=== PATIENT | female | born 1970 | race Caucasian/White ===

== ENCOUNTER → 2020-07-29 13:18 | Outpatient (CLI) | payer BC, SELFPAY ==
--- NOTE | ~2020-07-29 | MM_ITS ---
EXAMINATION: MM screening [facility] BI w venus HISTORY: Screening TECHNIQUE: Craniocaudal and mediolateral oblique 3-D tomosynthesis images were obtained and synthetic 2-D images were generated. CAD analysis was submitted and interpreted. COMPARISON: Comparison to multiple prior studies sequentially, with oldest reviewed study dated 04/06. BREAST PARENCHYMAL COMPOSITION: The breasts are heterogeneously dense, which may obscure small masses . FINDINGS: There is no evidence of suspicious mass, calcification, or architectural distortion to sugg est malignancy in either breast. There has been no suspicious interval change. IMPRESSION: 1. No mammographic evidence of malignancy. 2. Recommend routine screening mammography in one year. BI-RADS Category 1: Negative Reviewed, dictated and finalized at location A. SEWER
== END ==
PROVIDERS: Visit Provider Nurse Practitioner
DX: Z12.31 Encounter for screening mammogram for malignant neoplasm of breast (principal)
CPT/HCPCS: 77063; 77067

== ENCOUNTER → 2021-09-15 12:17 | Outpatient (CLI) | payer BC, SELFPAY ==
--- NOTE | ~2021-09-15 | MM_ITS ---
EXAMINATION: MM screening [facility] BI w [facility] HISTORY: Screening mammogram TECHNIQUE: Craniocaudal and mediolateral oblique 3-D tomosynthesis images were obtained and synthetic 2-D images were generated. CAD analysis was submitted and interpreted. COMPARISON: 07/29/2020, 05/12/2019 BREAST PARENCHYMAL COMPOSITION: There are scattered areas of fibroglandular density. FINDINGS: There is no evidence of suspicious mass, calcification, or architectural distortion to sugg est malignancy in either breast. There has been no suspicious interval change. IMPRESSION: 1. No mammographic evidence of malignancy. 2. Recommend routine screening mammography in one year. BI-RADS Category 1: Negative Reviewed, dictated and finalized at location A. TWISTER WINDER
== END ==
PROVIDERS: PCP Obstetrics & Gynecology Gynecology; Visit Provider Obstetrics & Gynecology Gynecology
DX: Z12.31 Encounter for screening mammogram for malignant neoplasm of breast (principal)
CPT/HCPCS: 77063; 77067

== ENCOUNTER → 2022-11-19 16:18 | Outpatient (CLI) | payer BC, SELFPAY ==
--- NOTE | ~2022-11-19 | MM_ITS ---
EXAMINATION: MM screening [facility] BI w [facility] HISTORY: Screening TECHNIQUE: Craniocaudal and mediolateral oblique 3-D tomosynthesis images were obtained and synthetic 2-D images were generated. CAD analysis was submitted and interpreted. COMPARISON: No prior mammogram is available for comparison at this institution. BREAST PARENCHYMAL COMPOSITION: There are scattered areas of fibroglandular density. FINDINGS: There is no evidence of suspicious mass, calcification, or architectural distortion to sugg est malignancy in either breast. There has been no suspicious interval change. IMPRESSION: 1. No mammographic evidence of malignancy. 2. Recommend routine screening mammography in one year. BI-RADS Category 1: Negative Reviewed, dictated and finalized at location A.
== END ==
PROVIDERS: PCP Obstetrics & Gynecology Gynecology; Visit Provider Nurse Practitioner
DX: Z12.31 Encounter for screening mammogram for malignant neoplasm of breast (principal)
CPT/HCPCS: 77063; 77067

== ENCOUNTER 2023-12-27 10:09 | Outpatient (CLI) | payer BC, SELFPAY ==
--- NOTE | ~2023-12-27 | MM_ITS ---
EXAMINATION: MM screening [facility] BI w ven[facility] HISTORY: Screening mammogram TECHNIQUE: Craniocaudal and mediolateral oblique 3-D tomosynthesis images were obtained and synthetic 2-D images were generated. CAD analysis was submitted and interpreted. COMPARISON: 11/19/2022, 09/15/2021 bilateral screening mammogram examinations BREAST PARENCHYMAL COMPOSITION: There are scattered areas of fibroglandular density. FINDINGS: Biopsy marker on the left; history of prior benign left breast biopsy. Possible 5 mm mass is suggested in the anterior outer mid right breast. Diagnostic right mammogram is recommended, with ultrasound if required. Otherwise there is no evidence of suspicious mass, calcification, or architectural distortion to sugg est malignancy in either breast. There has been no other suspicious interval change. IMPRESSION: 1. Possible 5 mm right breast mass, anterior outer mid breast 2. Diagnostic right mammogram is recommended with ultrasound if required BI-RADS Category 0: Incomplete: Needs additional imaging evaluation. Reviewed, dictated and finalized at location B.
--- NOTE | ~2023-12-27 | DEXA_ITS ---
Bone Density Report Name: KENNY MONSIVAIS Age: 53 Sex: Female Ethnicity: White Date of : 1970 Indication: postmenopausal; screening for osteoporosis; Referring Provider: ADOLFO, EDISON Study: Bone densitometry was performed. Exam Date: December 27, 2023 Accession number: [id number] Bone Density: Region BMD T-score Z-score Classification AP Spine (L1-L4) 1.005 -0.4 0.6 Normal Femoral Neck (Left) 0.705 -1.3 -0.3 Osteopenia Total Hip (Left) 0.947 0.0 0.7 Normal Femoral Neck (Right) 0.698 -1.4 -0.3 Osteopenia Total Hip (Right) 0.934 -0.1 0.6 Normal Total Hip Mean 0.941 -0.1 0.7 Normal World Health Organization criteria for BMD impression classify patients as: Normal (T-score at or above -1.0), Osteopenia (T-score between -1.0 and -2.5), or Osteoporosis (T-score at or below -2.5). 10-year Fracture Risk(1): Major Osteoporotic Fracture 5.7% Hip Fracture 0.3% Reported Risk Factors: [place] (), Neck BMD=0.698, BMI=32.8 (1) FRAX(R) Version 3.08. Fracture probability calculated for an untreated patient. Fracture probability may be lower if the patient has received treatment. Clinical Information Provided by Patient: Has used the following medications: Vitamin D, Calcium Patient maximum height was 62.63 Menopause Age: 51 No regular weight bearing exercise Drinks caffeinated beverages Onset of menses at age 13 Number of children 2 Impression: The patient has low bone mass, based on the Right Femoral Neck T-score. The patient has an estimated ten-year risk of hip fracture of 0.3% and an estimated ten-year risk of major fracture of 5.7%, based on the WHO FRAX algorithm. Discussion: BONE DENSITY IS LOW AT ONE OR MORE SKELETAL SITES. This patient's lowest T-score is low at one or more skeletal sites. It meets the World Health Organization's (WHO) criteria for ?low bone mass? (T-score between -1.0 and -2.5). The patient's 10-year risk of fracture as calculated by FRAX is less than the threshold where pharmacological therapy is recommended by the National Osteoporosis Foundation (NOF). However, all treatment decisions require clinical judgment and consideration of individual patient factors, including patient preferences, comorbidities, previous drug use, risk factors not captured in the FRAX model (e.g., frailty, falls, vitamin D deficiency, increased bone turnover, interval significant decline in bone density) and possible under or overestimation of fracture risk by FRAX. The patient should follow a healthful lifestyle (good nutrition with adequate calcium and vitamin D, and appropriate weight-bearing exercise). Follow-Up: Consider repeating this study in 2 to 3 years to reassess this patient's status, or sooner if there is some new clinical indication. Reported by: FRIDA on
== END 2023-12-27 10:10 ==
LOC: MICIMG 10:10
PROVIDERS: PCP Nurse Practitioner; Visit Provider Nurse Practitioner
DX: Z12.31 Encounter for screening mammogram for malignant neoplasm of breast (principal); Z78.0 Asymptomatic menopausal state; R92.8 Other abnormal and inconclusive findings on diagnostic imaging of breast; M85.852 Other specified disorders of bone density and structure, left thigh; M85.851 Other specified disorders of bone density and structure, right thigh
CPT/HCPCS: 77063; 77067; 77080

== ENCOUNTER 2023-12-30 13:40 | Outpatient (CLI) | payer BC, SELFPAY ==
--- NOTE | ~2023-12-30 | US_ITS ---
EXAMINATION: US transvaginal DATE: 12/30/2023 14:01 INDICATION: Postmenopausal bleeding TECHNIQUE: Multiple endovaginal sonographic images of the pelvis were obtained. COMPARISON: 03/23/2017 FINDINGS: The uterus measures 10.3 x 4.9 x 6.3 cm. The endometrial complex measures 17 mm in thickness. Within the myometrium along the anterior margin of the endometrial complex are a few nonspecific small nodu lar regions of similar echogenicity as the endometrial complex measuring up to 9 mm in maximal diamet er. 2.6 cm hypoechoic fibroid at the left side of the uterine fundus. For millimeter anechoic myometr ial cyst at the anterior lower uterine segment. The bilateral ovaries are not visualized. There is no free fluid in the pelvis. IMPRESSION: 1. Prominently thickened endometrial complex which measures up to 17 mm raising concern for endometri al carcinoma with differential including endometrial hyperplasia. Recommend hysteroscopy for further evaluation. 2. 2.6 cm uterine fibroid. 3. A few subcentimeter nodular region of increased echogenicity along the anterior margin of the endo metrial comparison with similar echogenicity potentially additional uterine fibroids although the pre sence of endometrial carcinoma this could represent myometrial invasion. Reviewed, dictated and finalized at location A. IMPRESSION: 1. Prominently thickened endometrial complex which measures up to 17 mm raising concern for endometrial carcinoma with differential including endometrial hype rplasia. Recommend hysteroscopy for further evaluation. 2. 2.6 cm uterine fibroid. 3. A few subcentimeter nodular region of increased echogenicity along the anter ior margin of the endometrial comparison with similar echogenicity potentially additional uterine fibroids although the presence of endometrial carcinoma this could represent myometrial invasion.
== END 2023-12-30 13:41 ==
LOC: MICIMG 13:41
PROVIDERS: PCP Nurse Practitioner; Visit Provider Nurse Practitioner
DX: N95.0 Postmenopausal bleeding (principal); N85.00 Endometrial hyperplasia, unspecified; D25.9 Leiomyoma of uterus, unspecified
CPT/HCPCS: 76830

== ENCOUNTER 2024-01-07 00:38 | Day surgery (SDC) | payer BC, SELFPAY ==
[2024-01-03 13:10] VITALS: BMI 33.0
--- NOTE | 2024-01-03 13:11 | PC.NURSE ---
Report to the Outpatient Waiting Room, entrance under the green pavilion located off [facility], at time _0800_ on date _[id number]_. Planned Procedure Time: _1000_. Time changes happen often and if your time is changed the preop area will call you the afternoon before. - You and your visitor will be asked to self-screen and do not enter if you have any COVID symptoms. - A mask is optional within the hospital at this time. Patients may have clear liquids (water, carbonated beverages, clear teas, apple juice) until 3 hours prior to surgery with a maximum of 20 ounces. - No food from midnight until time of surgery Take the following medications with a SIP of water the morning of surgery: ___None DO NOT STOP ANY OF YOUR OTHER PRESCRIPTION MEDICATIONS PRIOR TO SURGERY ?EXCEPT THE FOLLOWING Medications to discontinue per physician ___Stop vitamin d Date to take last [id number] Please no make-up, nail mongolian, hairspray, perfume, deodorant, or body powder the day of surgery. No jewelry (including any body piercings) or valuables the day of surgery, leave them at home. Please take a shower or bath the night before, or the morning of, surgery with an antibacterial soap. Wear comfortable, loose fitting clothing. - Jewelry must be removed prior to entering the operating room. Rings and piercings that are not removed may be cut off. - The hospital will not accept responsibility for valuables. - Please leave all valuables, including medications, at home the day of surgery. If you are going home after surgery, a licensed equipment driver must drive you home. - NO public transportation without another adult if you receive anesthesia. - We recommend that an adult stay with you for 24 hours following discharge. - We also recommend that you do not drive, make important decision, drink alcoholic beverages, or take any drugs that were not prescribed by your health care provider for at least 24 hours after your discharge time. Follow any additional instructions given to you from your surgeon. If you or anyone in your household have experienced Covid symptoms in the past week, please notify your surgeon or the nurse liaison at the phone number below for possible testing. Telephone instructions given to __Kelly___and asked if any additional questions and then verbalized understanding. Patient advised to call surgeon office or pre surgery nurse liaison [phone] if any additional questions.
[2024-01-07 07:50] VITALS: BP 150/101; PULSE 93; RESP 16; TEMP 36.5; O2SAT 98; BMI 32.8
[2024-01-07 08:00] VITALS: BP 147/77
[2024-01-07] MEDS: LACTATED RINGERS 1,000 ML 30 ML IV CONT (08:25)
[2024-01-07] MEDS: ACETAMINOPHEN 500 MG TABLET 1000 MG PO (08:31)
--- NOTE | 2024-01-07 09:32 | WPDANESEPPF ---
Anes - Initial Pre Proc Eval Procedure: Operation Date: 01/07/24 10:00 Proposed Procedures p Hysteroscopy Dilation and Curettage - Miguelina Glynn MD Date/Time: 01/07/24 09:32 Surgeon: Miguelina Glynn MD Pre Op Diagnosis: Post Menopausal Bleeding Patient Data Age: 53 Gender: F Height: 1.57 m Weight: 81.55 kg Last Vital Signs Temp 97.7 F 01/07/24 07:50 Pulse 93 01/07/24 07:50 Resp 16 01/07/24 07:50 BP 150/101 H 01/07/24 07:50 Pulse Ox 98 01/07/24 07:50 O2 Del Method Room Air 01/07/24 07:50 Allergies Allergy/AdvReac Type Severity Reaction Status Date / Time No Known Allergies Allergy Verified 01/07/24 08:06 Home Medications Medication Instructions Recorded Confirmed Type ergocalciferol (vitamin D2) 1,250 1,250 mcg PO WEEKLY 01/03/24 01/07/24 History mcg (50,000 unit) capsule losartan 100 mg tablet 100 mg PO DAILY 01/03/24 01/03/24 History Patient hx anesthesia problems: none Family hx anesthesia problems: none Results Review: All pre-operative results and documents have been reviewed as part of the pre-operative evaluation. [facility] Family History Family History Father Patient's father is in good health Mother Family history of malignant melanoma Other Cerebrovascular accident Diabetes mellitus Family history of cardiovascular disease Family history of malignant neoplasm Hypertension Social History Social History Smoking status: Never smoker Alcohol intake: current Living arrangements: with family Spiritual care concerns: No Anes - Eval Final PreProcedure Day of Procedure 01/07/24 09:32 Patient weight: obese Heart: regular rate and rhythm Lungs: clear to auscultation Airway: Mallampati scale class II Neurological: alert and oriented Last oral intake: >/= 8 hours ASA classification: II Emergent: no Anesthetic plan: proceed Anesthesia type and monitoring: general GIVS and standard monitoring Results Review: All pre-operative results and documents have been reviewed as part of the pre-operative evaluation. Informed Consent: The patient's anesthetic plan and its attendant risks and benefits were discussed with the patient/family/POA. Questions were solicited and answers provided to the satisfaction of the patient/family/POA.
--- NOTE | 2024-01-07 09:41 | P.HP_ITS ---
History of Present Illness History of Present Illness Consent: Risks, benefits, and alternatives have been discussed and questions answered. Patient agrees to proceed with procedure. Chief complaint: Post Menopausal Bleeding Narrative: Peg Hernandez is a 53 year old female with postmenopausal bleeding starting in early December. Patient underwent pelvic ultrasound which showed a thickened endometrium at 17mm with nonspecific nodular regions. It was recommended to undergo D&C hysteroscopy. Risks of infection, bleeding, perforation, and fluid imbalance were reviewed. Possible pathology was also discussed. Patient voices understanding and agrees to proceed. Review of Systems Review of Systems: not repeated day of surgery; patient states no changes in status [facility] Past Medical History Medical History (Updated 01/07/24 @ 09:45 by Miguelina Glynn MD) HTN (hypertension) (normal spontaneous vaginal delivery) x2 Surgical History Surgical History (Updated 01/07/24 @ 09:44 by Miguelina Glynn MD) History of breast biopsy 2019 fibroadenoma History of cryosurgery 2003 normal Pap since History of hysteroscopy 2016 bengn Family History Family History Father Patient's father is in good health Mother Family history of malignant melanoma Other Cerebrovascular accident Diabetes mellitus Family history of cardiovascular disease Family history of malignant neoplasm Hypertension Social History Social History Smoking status: Never smoker Alcohol intake: current Living arrangements: with family Spiritual care concerns: No Meds Home Medications and Allergies Home Medications Medication Instructions Recorded Confirmed Type ergocalciferol (vitamin D2) 1,250 1,250 mcg PO WEEKLY 01/03/24 01/07/24 History mcg (50,000 unit) capsule losartan 100 mg tablet 100 mg PO DAILY 01/03/24 01/03/24 History Allergies Allergy/AdvReac Type Severity Reaction Status Date / Time No Known Allergies Allergy Verified 01/07/24 08:06 Vital Signs Vital Signs - 24 hr 01/07/24 07:50 Temperature 97.7 F Pulse Rate 93 Respiratory Rate 16 Blood Pressure 150/101 H Pulse Oximetry 98 Oxygen Delivery Room Air Exam Const: General: healthy appearing and alert Orientation/consciousness: patient oriented x3 Resp: Effort & Inspection: normal respiratory effort : External Female Exam: normal external appearance Speculum Exam - Vagina: normal appearance of the vagina and normal vaginal discharge Speculum Exam - Cervix: normal appearance of the cervix Bimanual exam- vagina & uterus: uterine size normal and consistency normal Bimanual Exam- Adnexa, other: normal adnexae and No adnexal tenderness Neuro: General: patient oriented x3 Assessment and Plan Assessment and plan (1) Post-menopausal bleeding: Code(s): N95.0 - Postmenopausal bleeding Status: Acute Assessment and Plan: with abnormal pelvic ultrasound plan to proceed with D&C hysteroscopy
--- NOTE | 2024-01-07 09:41 | WPDHPUPDATE1 ---
History and Physical Update Update Date/Time: 01/07/24 09:41 History and Physical has been reviewed, including an updated exam of the patient. There are NO changes in the patient's condition. Risks, benefits, and alternatives have been discussed and questions answered. Patient agrees to proceed with procedure.
--- NOTE | 2024-01-07 10:33 | W.PM.PROC2 ---
Procedure Note - Detailed Date of Procedure 01/07/24 Pre-op Diagnosis Post Menopausal Bleeding Post-op Diagnosis Same Procedure Performed D&C hysteroscopy with resection of multiple polyps Surgeon Miguelina Glynn MD Anesthesia MAC and Local Findings the uterus sounds to 10cm and has multiple polyps Description of Procedure The patient is taken to the operating room and placed under anesthesia in the dorsal lithotomy position. She was prepped and draped in usual sterile fashion. [place] speculum was placed in the vagina and the cervix is grasped on the anterior lip with a tenaculum. The uterus is sounded to 10cm. The hysteroscope was placed and with multiple polyps identified the small Aveeta resection device is placed. Under direct visualization all polyps are removed in their entirety. The hysteroscope was then removed and the sharp OO curette is used to curette the endometrium until a good uterine cry was noted in all areas. All instruments are removed. Sponge, needle, and instrument counts are correct per the OR staff. The patient was taken to recovery in stable condition. Estimated Blood Loss 5 Drains No Packing No Pathology Yes ( Endometrial shavings and curettings) Complications No immediate complications Condition Stable Disposition PACU
[2024-01-07 10:38] VITALS: BP 116/80; PULSE 79; RESP 14; O2SAT 95
[2024-01-07 11:05] VITALS: BP 123/68; PULSE 68; RESP 16; O2SAT 94
[2024-01-07 11:35] VITALS: BP 146/77; PULSE 58; RESP 16
[2024-01-07] MEDS: oxyCODONE HCL (*CRX) 5 MG TAB IR PO (11:39)
[2024-01-07 12:00] VITALS: BP 148/80; PULSE 62; RESP 16
== END 2024-01-07 12:08 | disposition home or self-care (01) ==
PROVIDERS: Visit Provider Obstetrics & Gynecology Gynecology
PROC: 0U5B8ZZ Destruction of Endometrium, Via Natural or Artificial Opening Endoscopic (ICD-10-PCS; CPT 58563; principal; 2024-01-07 10:00)
DX: N95.0 Postmenopausal bleeding (principal); N84.0 Polyp of corpus uteri; E66.9 Obesity, unspecified; Z68.32 Body mass index [BMI] 32.0-32.9, adult; I10 Essential (primary) hypertension
CPT/HCPCS: 58558; 88305; A9270; J1100; J2250; J2405; J2704; J3010; J7120

== ENCOUNTER 2024-01-31 09:03 | Outpatient (CLI) | payer BC, SELFPAY ==
--- NOTE | ~2024-01-31 | MMUS_ITS ---
EXAMINATION: MM diagnostic [facility]bert RT w venus, US breast RT complete HISTORY: Follow-up right breast asymmetries TECHNIQUE: Additional 3-D tomosynthesis images of the right breast were performed and synthetic 2-D i mages were generated. CAD analysis was submitted and interpreted. High resolution complete right peg st ultrasound was performed. COMPARISON: Comparison to multiple prior studies sequentially, with oldest reviewed study dated 01/2024. BREAST PARENCHYMAL COMPOSITION: Not dense: There are scattered areas of fibroglandular density. FINDINGS: MAMMOGRAPHIC FINDINGS: There are no suspicious masses, calcifications or architectural distortion in the right breast to sug gest malignancy. Focal asymmetries in the upper outer quadrant of the right breast are less apparent with spot compression views and mediolateral views, is likely superimposed fibroglandular tissue. ULTRASOUND: Complete US of all 4 quadrants of the right breast and retroareolar region was reviewed. At 2:00, 1 c m from the nipple there is an oval circumscribed hypoechoic mass without posterior features or brand marketing intern al vascularity measuring 5 mm. Abdomen 7:00, 1 cm from the nipple, there is a 5 mm cyst. At 9:00, 3 c m from the nipple, there is a 5 mm cyst. At 11:00, 2 cm from the nipple, there is an oval hypoechoic 5 mm mass without posterior features or internal vascularity, likely benign. IMPRESSION: 1. Probable benign findings of the right breast by ultrasound. 2. Recommend 6 month follow-up Limited right breast ultrasound BI-RADS category 3, probably benign findings. Reviewed, dictated and finalized at location B. IMPRESSION: 1. Probable benign findings of the right breast by ultrasound. 2. Recommend 6 month follow-up Limited right breast ultrasound BI-RADS category 3, probably benign findings.
== END 2024-01-31 09:04 ==
LOC: MICIMG 09:03
PROVIDERS: Visit Provider Nurse Practitioner
DX: R92.8 Other abnormal and inconclusive findings on diagnostic imaging of breast (principal)
CPT/HCPCS: 76641; 77061; 77065; G0279

== ENCOUNTER 2024-07-31 09:10 | Outpatient (CLI) | payer BC, SELFPAY ==
--- NOTE | ~2024-07-31 | US_ITS ---
US breast RT limited 07/31/2024 09:34 Indication: Six-month follow-up right breast masses. Procedure: High-resolution Limited ultrasound of the right breast Comparison: Comparison to multiple prior studies sequentially, with oldest reviewed study dated 09/15. Findings: There are multiple simple and complicated cysts of the right breast measuring 4 mm or less. No suspicious masses, calcifications or architectural distortion Impression: 1: No evidence for malignancy in the right breast. Benign findings. Routine yearly screening mammogram and regular clinical breast examination are recommended. BI-RADS CATEGORY 2 - BENIGN FINDINGS Reviewed, dictated and finalized at location B. [facility] SPECIALIST Impression: 1: No evidence for malignancy in the right breast. Benign findings. Routine yearly screening mammogram and regular clinical breast examination are recommended. BI-RADS CATEGORY 2 - BENIGN FINDINGS
== END 2024-07-31 09:11 | disposition home or self-care (01) ==
LOC: MICIMG 09:13
PROVIDERS: PCP Obstetrics & Gynecology Gynecology; Visit Provider Obstetrics & Gynecology Gynecology
DX: R92.8 Other abnormal and inconclusive findings on diagnostic imaging of breast (principal)
CPT/HCPCS: 76642

== ENCOUNTER 2025-01-01 07:14 | Outpatient (CLI) | payer BC, SELFPAY ==
--- NOTE | ~2025-01-01 | MM_ITS ---
EXAMINATION: MM screening [facility] BI w venus HISTORY: Screening mammogram TECHNIQUE: Craniocaudal and mediolateral oblique 3-D tomosynthesis images were obtained and synthetic 2-D images were generated. CAD analysis was submitted and interpreted. COMPARISON: 12/27/2023, 11/19/2022, 09/15/2021, 07/29/2020 BREAST PARENCHYMAL COMPOSITION:Not Dense. There are scattered areas of fibroglandular density. FINDINGS: No suspicious mass, calcification, or architectural distortion are identified in either lavelle ast to suggest malignancy. There has been no suspicious interval change. IMPRESSION: No mammographic evidence of malignancy. Recommend routine screening mammography in one year. BI-RADS Category 1: Negative Reviewed, dictated and finalized at location .
== END 2025-01-01 07:15 | disposition home or self-care (01) ==
LOC: MICIMG 07:15
PROVIDERS: PCP Obstetrics & Gynecology Gynecology; Visit Provider Obstetrics & Gynecology Gynecology
DX: Z12.31 Encounter for screening mammogram for malignant neoplasm of breast (principal)
CPT/HCPCS: 77063; 77067